=== PATIENT | female | born 1995 | race Caucasian/White ===

== ENCOUNTER 2022-09-04 16:26 | Outpatient (CLI) | payer SELFPAY ==
[2022-09-05 15:11] LABS: Strep B DNA Probe NEGATIVE (Negative)
[2022-09-05 15:53] LABS: Strep B Pen/Amox Allergy No
== END 2022-09-04 16:27 | disposition home or self-care (01) ==
LOC: NFLDREF 16:27
PROVIDERS: Visit Provider Advanced Practice Midwife
DX: Z34.93 Encounter for supervision of normal pregnancy, unspecified, third trimester (principal); Z3A.36 36 weeks gestation of pregnancy
CPT/HCPCS: 87081; 87653

== ENCOUNTER 2022-09-06 10:14 | Inpatient (IN) | payer OTHER, SELFPAY ==
[2022-09-06] VITALS (32 sets, daily range): BP systolic 93–139; BP diastolic 53–85; PULSE 82–114; RESP 16–18; TEMP 36.4–36.9; O2SAT 94–99; BMI 29.9
[2022-09-06 10:13] LABS: Amnisure Rom* POSITIVE
--- NOTE | 2022-09-06 11:07 | PM.OBHPLI ---
OB - H&P: HPI Labor/Induction History of Present Illness Date Seen: 09/06/22 Chief Complaint: The patient is a 27 year old 5 para 1031 at 36 3/7 weeks gestation by LMP, who presents with PROM. Chief complaint: Maternity : 5 Para: 1 Narrative: Deb Harrison is a 27 year old at 36 3/7 weeks gestation being admitted to Labor and Delivery for PROM of clear fluid that occurred about 5 am this morning. She denies any cramping, contractions, or vaginal bleeding. She is supported by her , Jesús. She plans an epidural for pain management. OB PROBLEM LIST 1. Transfer of care at 28 weeks 1 day from [place] 2. Previous with Down syndrome, elected termination.? Patient reports negative cell free DNA.? Boy!? Records pending 3. MALGORZATA was changed at transfer of care visit with known LMP.? By LMP, MALGORZATA 10/01/2022.? First ultrasound was done at approximately 16 weeks with an MALGORZATA 09/24/2022 4. History of depression, never treated.? Currently doing well. 5. Estimated weight 97th percentile on anatomy ultrasound, this was with working MALGORZATA of 09/24/2022. 6. History of vacuum assisted vaginal delivery secondary to maternal exhaustion History of Present Dating criteria: based on LMP care: good care Ultrasounds: normal 1st trimester US (04/11/2022:? Single intrauterine gestation with heart rate of 154.? MALGORZATA 09/24/2022 ) and normal mid trimester US (05/12/2022:? Posterior placenta, no previa.? Normal amniotic fluid.? Estimated weight 97th percentile.? Normal anatomy. MALGORZATA 10/01/22) Labs Blood type: B (+) positive Rubella: immune RPR/VDLR: nonreactive GBS status: negative HBsAG: negative Narrative: labs 03/07/2022: B positive, negative antibody screen, hemoglobin 13.2, platelets 208, rubella immune, RPR negative, hepatitis-B surface antigen nonreactive, HIV nonreactive, gonorrhea and Chlamydia negative, negative urine culture.? Hep C nonreactive.? Urine drug screen negative Twenty-eight week labs 06/20/2022: Hemoglobin 12.1, 1 hour GTT 82, RPR nonreactive Review of Systems Status of ROS: Reports: 10 or more systems reviewed and unremarkable except as noted in History and below Meds Home Medications and Allergies Home Medications Medication Instructions Recorded Confirmed Type acetaminophen 325 mg tablet 325 mg PO ONCE PRN 07/10/22 09/06/22 History (Tylenol) famotidine 20 mg tablet 20 mg PO QHS 07/10/22 09/06/22 History prenat.vits,michelle,mmz-[id number]-anbpz 1 tab PO QDAY 07/10/22 09/06/22 History Allergies Allergy/AdvReac Type Severity Reaction Status Date / Time No Known Drug Allergies Allergy Verified 09/04/22 14:55 OB - H&P: Exam Physical Exam: Vital signs: Temp Pulse Resp BP 98.4 F 88 18 128/85 09/06/22 10:45 09/06/22 10:29 09/06/22 10:45 09/06/22 10:29 Narrative: Vitals Reviewed Constitutional:? Alert and oriented x3 HEENT:? Normocephalic, atraumatic Neck:? Supple Lungs:? Clear to auscultation bilaterally Heart:? Regular rate and rhythm, no murmur, rub or gallop Abdomen:? Soft, nontender, and gravid. Vertex by Brad's Extremities:? No edema or erythema Cervix: deferred with ROM NST: 145 bpm/moderate variability/15x15 accelerations/no decelerations/occasional contractions OB - Problem Based A/P Additional Plan (1) premature rupture of membranes: Status: Acute (2) 36 weeks gestation of : Status: Acute (3) Hx of delivery by vacuum extraction, currently : Status: Acute Plan ASSESSMENT:? 27 at 36 3/7 weeks gestation? complicated by:?hx of fetus with down syndrome, elective termination; hx of depression, EFW 97%ile, hx of vacuum Labor type: Spontaneous, early labor? Category 1 FHR pattern.?? Labor complicated by: PPROM, 36 weeks gestation GBS negative? ? PLAN:? 1. Routine intrapartum cares as ordered. Discussed options of expectant management for max of 12 hours vs augmentation with pitocin. she desires expectant at this time but does no desire to wait 12 hours. Time of ROM 0500 am. Will revisit augmentation later around lunch time. 2. Monitoring per policy, continuous due to . Reviewed dating of of LMP vs 2nd trimester US. Based on current situation and vs not, we elect to keep LMP dating. Will plan for peds at delivery due to status. 3. Planning epidural, candidate for analgesia of choice when desired. 4. Patient encouraged to reposition and ambulate to promote physiologic labor and .? 5. Anticipate ? Delivery/Labor/Induction Plan Plan: expectant management
[2022-09-06 13:12] LABS: Basophils Percent Auto 0.4 % (0.0-3.0); Eosinophils Percent Auto 0.8 % (0.0-7.0); Hematocrit 37.6 % (33.0-51.0); Hemoglobin* 12.6 gm/dL (12.0-16.0); Immature Granulocytes Pct Auto 0.9 %; Lymphocytes Percent Auto 15.5 % (20-44); Mean Corpuscular HGB Conc 34 gm/dL (32-36); Mean Corpuscular Hemoglobin 30 pg (26-34); Mean Corpuscular Volume 91 fL (80-100); Monocytes Percent Auto 5.9 % (0.0-11.0); Neutrophils Percent Auto 76.5 % (42.0-72.0); Platelet Count* 179 K/uL (140-440); RDW Coefficient of Variation % 13.5 % (11.5-15.5); Red Blood Count 4.14 m/uL (4.00-5.20); White Blood Count* 13.31 K/uL (4.50-11.00)
[2022-09-06] MEDS: LACTATED RINGERS 1000 ML 1,000 ML 124 ML IV (13:13)
[2022-09-06] MEDS: OXYTOCIN 30 unit/500 ML in NS 30 UNIT/500 ML BAG IVPB (13:13)
[2022-09-06 13:27] LABS: Slide Review Reflex No
--- NOTE | 2022-09-06 17:35 | P.OBPN_ITS ---
Subjective Date Seen: 09/06/22 Narrative: Deb is a at 36 3/7 weeks gestation that presented for PPROM. She initially was not feeling anything. She elected expectant management. Baby was thought to be cephalic by Brad. Pitocin was started with request to defer cervical exam. This evening patient was starting to feel contractions and requested SVE. 2/50/-4 however no parts were palpated in the pelvis. Bedside ultrasound was performed where fetus was identified as breech. Objective Exam: Objective: Constitutional: Alert and oriented x3, [mild/moderate/severe] distress, coping well Vital signs stable, see nurse documentation Abdomen: gravid, contractions palpate [mild/moderate/strong] with contractions and soft between Cervix: 2 cm/50%/-4 station/BREECH NST: 145 bpm/moderate variability/accelerations present/decelerations present/contractions every 2-4 minutes, mild to moderate intensity Vital Signs: Last Vital Signs Temp 97.9 F 09/06/22 17:08 Pulse 109 H 09/06/22 17:01 Resp 18 09/06/22 17:08 BP 123/83 09/06/22 17:01 Pulse Ox 98 09/06/22 17:06 Contractions Monitor mode: External Contraction pattern: Regular Contraction intensity: Moderate Assessment Assessment: early labor Station: 0 Amniotic Membrane Status: SROM (Clear) Status: Category l Heart Rate Baseline: 145 Penitentiary Variability: Moderate (6-25) Monitor Accelerations: Present Monitor Decelerations: None Plan Plan: ASSESSMENT:? 27 at 36 3/7 weeks gestation? complicated by:?hx of fetus with down syndrome, elective termination; hx of depression, EFW 97%ile, hx of vacuum Labor type: Spontaneous, early labor? Category 1 FHR pattern.?? Labor complicated by: PPROM, 36 weeks gestation, BREECH GBS negative? ? PLAN:? 1. Pitocin stopped. MD notified to assess and likely proceed with c/s. Patient questions answered. 2. MD arrived to bedside and with low fluid recommends proceeding with section. Care transferred to Dr. Yang for procedure. Patient prepped for surgery.
--- NOTE | 2022-09-06 18:03 | P.OBCN_ITS ---
OB - CN: HPI Date of Consult Date Seen: 09/06/22 Consult date: 09/06/22 Requesting Physician: Maya Rios CNM Primary Care Provider: Not a Local Provider Consult Narrative Reason for consult: malpresentation Narrative: The patient is a 27 year old G5 P 1031 at 36 3/7 weeks gestation by LMP consistent with 2nd trimester ultrasound, MALGORZATA 10/01/2022, who presented after PPROM at around 5 a.m.. 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 She is mathew, and status has been reassuring, so she has been managed expectantly. However, Maya Rios CNM recently did a vaginal exam and noted presenting part to be quite high. Subsequently, she did a bedside ultrasound, revealing mild presentation. She then consulted me. OB PROBLEM LIST 1. Transfer of care at 28 weeks 1 day from [place] 2. Previous with Down syndrome, elected termination.? Patient reports negative cell free DNA.? Boy!? Records pending 3. MALGORZATA was changed at transfer of care visit with known LMP.? By LMP, MALGORZATA 10/01/2022.? First ultrasound was done at approximately 16 weeks with an MALGORZATA 09/24/2022 4. History of depression, never treated.? Currently doing well. 5. Estimated weight 97th percentile on anatomy ultrasound, this was with working MALGORZATA of 09/24/2022. 6. History of vacuum assisted vaginal delivery secondary to maternal exhaustion gestation Her history is otherwise as documented by Maya Rios CNM. History History 5 Elective abortions 2 Para 1 Spontaneous abortions 1 Hx # Term Pregnancies 1 Ectopic pregnancies Hx # Pregnancies Multiple births Number of Living Children 1 Past Pregnancies Del. Date GA/Weeks Outcome Route wt Inf Gender Labor Lgth Anesthesia Location Provider Compli Unknown elective Unknown elective Unknown spontaneous 07/07/21 41 live - full term 7 lb 14 oz Female 4hrs ep idural [facility] Delivery Date: 07/07/21 Last Updated by: Aletha Shea ~ [employer], [employer] vacuum assisted Labs Blood type: B (+) positive Rubella: immune RPR/VDLR: nonreactive GBS status: negative HBsAG: negative OB Labs: Lab Assessment Start: 09/06/22 10:26 Freq: Status: Active Protocol: PC.OBGBS Activity Type Activity Date Activity User E-sign Co-sign Detail Recorded Client Recorded Date Recorded By Document 09/06/22 10:26 [facility] [id number] 09/06/22 10:26 BEATA REYESDAVIDPETER 09/06/22 10:26 Lab Assessment GBS Negative [facility] Medical History History of depression ?Z86.59 - Personal history of other mental and behavioral disorders (ICD-10) Down syndrome in child of prior , currently ?O09.299 - Supervision of with other poor reproductive or obstetric history, unspecified trimester (ICD-10) Status post vacuum-assisted vaginal delivery ?Z87.59 - Personal history of other complications of , childbirth and the puerperium (ICD-10) Social History What is your current living situation: I presently have a place to live Problems where you live: no known problems In the past 12 months, utilities in danger of being shut off: no In the past 12 mos, have been you worried that your food would run out before y ou had money to buy more?: never true In the past 12 mos, the food you bought just didn't last and you didn't have money to buy more?: never true Smoking Status: Never smoker How often does anyone, including family, friends and others, physically hurt you : How often does anyone, including family, friends and others, insult or talk down to you: How often does anyone, including family, friends and others, threaten you with harm: How often does anyone, including family, friends and others, scream or curse at you: Little interest or pleasure in doing things: not at all Feeling down, depressed, or hopeless: not at all Meds Home Medications and Allergies Home Medications Medication Instructions Recorded Confirmed Type acetaminophen 325 mg tablet 325 mg PO ONCE PRN 07/10/22 09/06/22 History (Tylenol) famotidine 20 mg tablet 20 mg PO QHS 07/10/22 09/06/22 History prenat.vits,michelle,ori-nnut-mixal 1 tab PO QDAY 04/20/23 06/17/23 History Allergies Allergy/AdvReac Type Severity Reaction Status Date / Time No Known Drug Allergies Allergy Verified 09/04/22 14:55 OB - H&P: Exam Physical Exam: Vital signs: Temp Pulse Resp BP Pulse Ox 97.9 F 109 H 18 123/83 98 09/06/22 17:08 09/06/22 17:01 09/06/22 17:08 09/06/22 17:01 09/06/22 17:06 Narrative: Physical exam: General: No acute distress Psych: Alert and oriented x3, full affect, using nitrous for contractions HEENT: Normocephalic, atraumatic Abdomen: Soft, nontender, gravid. head palpable in left upper quadrant of the uterus. Lower extremities: No edema or erythema Bedside ultrasound performed, revealing breech presentation with back to maternal right and oligohydramnios, consistent with previous rupture of membranes. OB - Results Labs Labs: Short CBC 09/06/22 Range/Units 13:00 WBC 13.31 H (4.50-11.00) K/uL Hgb 12.6 (12.0-16.0) gm/dL Hct 37.6 (33.0-51.0) % Plt Count 179 (140-440) K/uL OB - CN: A/P Assessment and Plan (1) premature rupture of membranes: Status: Acute (2) 36 weeks gestation of : Status: Acute (3) Breech presentation: Status: Acute Assessment and Plan: Plan is for primary low-transverse section. Discussed risks of procedure, including bleeding/hemorrhage, infection, damage to internal organs, thromboembolism, intra-abdominal scarring, and effect on future pregnancies. Consent form reviewed with and signed by patient. We will use azithromycin and cefazolin for preoperative prophylaxis. We discussed postoperative restrictions and precautions.
[2022-09-06] MEDS: miSOPROStoL 800 MCG/4 TABLET PR (19:08)
--- NOTE | 2022-09-06 19:15 | P.OBPRC_ITS ---
Procedure Date of procedure: 09/06/22 Procedure Done: Global Will [facility] bill your pro fee for this procedure?: Yes Procedure Description: Procedures Operation Date: 09/06/22 18:45 Actual Procedure Side Surgeon p Section Stefani Yang MD PREOPERATIVE DIAGNOSIS: PPROM at 36 3/7 weeks' gestation Breech presentation POSTOPERATIVE DIAGNOSIS: PPROM at 36 3/7 weeks' gestation Breech presentation PROCEDURE: Primary low-transverse section SURGEON: Stefani Yang MD ANESTHESIA: Spinal IV FLUIDS: 2000 cc crystalloid QBL: 1105 mL FINDINGS: 1. Male infant, breech presentation with sacrum transverse to maternal right, Apgars 8 and 9, weight 3510 g 2. Normal appearance to uterus, bilateral tubes and ovaries. COMPLICATIONS: Intraoperative hemorrhage of 1105 mL, attributable to abundant bleeding from uterine vessels at time of hysterotomy and to uterine atony. Managed with Pitocin, uterine massage, IM Methergine and rectal misoprostol. PROCEDURE IN DETAIL: Patient was taken to the operating room with IV running. She received cefazolin and azithromycin in preoperative prophylaxis. Spinal anesthesia was administered. Parnell catheter was inserted. She was prepped and draped in the usual sterile fashion. Anesthesia was tested and found to be adequate. A low-transverse skin incision was made with a scalpel and carried through to the underlying layer of fascia with the scalpel. The subcutaneous fat was dissected off the underlying fascia bluntly. The fascia was nicked in the midline with a scalpel, and this incision was extended laterally with scissors. The rectus muscles were in the midline. Peritoneum was identified and entered bluntly. Ren O retractor was inserted and tightened down, providing excellent visualization of the lower uterine segment. The bladder reflection was found to be well below the planned site for hysterotomy. Low-transverse uterine incision was made with a scalpel. Incision was widened bluntly. Abundant bleeding was encountered. The infant's hips were grasped through the hysterotomy and the sacrum was rotated anteriorly. Infant's breech was then delivered, followed by both legs. Body was rotated to facilitate delivery the arms. Head was delivered while maintaining flexed position. Cord was clamped and cut after 30 seconds. was handed off to attending nurses. The placenta was delivered with gentle traction on the cord. The uterus was cleaned of all clots and debris with the dry lap pad. The hysterotomy was reapproximated with 0 Vicryl in a running, locked fashion. An additional fi [id number]-[id number] suture was used to obtain hemostasis, as was Bovie on a raw area of the serosa. The uterus was exteriorized and massaged. The adnexa were examined and noted to be normal in appearance. The cul-de-sac and gutters were cleansed with dampened laparotomy sponge, removing any further clots and debris. The uterus was returned to the abdomen. The Ren O retractor was removed. The hysterotomy was reexamined and found to be hemostatic. The peritoneum was reapproximated with 2 0 Vicryl in a running fashion. The rectus muscles were examined and found to be hemostatic. The fascia was reapproximated with 0 Vicryl in a running fashion. Subcutaneous fat was irrigated and found to be hemostatic. The subcutaneous fat was reapproximated with 2 0 plain gut suture in an interrupted fashion. The skin was closed with a subcuticular stitch of 4-0 Monocryl. Surgical glue was applied above this. Patient tolerated procedure well was taken to recovery area in stable condition. [place] Infant total score - 1 minute: 8 total score - 5 minute: 9
[2022-09-06] MEDS: KETOROLAC 30 MG/ML inj IVP (19:30)
--- NOTE | 2022-09-06 19:42 | W.PM.NB ---
Nerve Block Nerve Block Time Seen by Provider: 19:15 Date Seen: 09/06/22 Type of block requested by surgeon for post-operative analgesia: TAP Side: bilateral Time out performed: Yes Verification of patient name: Yes Verification of date of : Yes Site marking: not applicable Name of person performing procedure: Saurav Cabrales CRNA Continuous monitoring Was continuous monitoring of O2 sat, B/P, cardiac monitor technician, recorded every 15 minutes?: Yes Procedure Checklist: sterile prep, needles and gloves Ultrasound guided. Images saved: Yes Medications given in 5ml increments after negative aspiration: Marcaine %: 0.25 mL: 30 Needle gauge: 20 and Exparel mL: 10 Needle gauge: 20 Patient tolerated procedure well: Yes Block Charges Block Charge (with Pro Fee): TAP Bilateral Use of Ultrasound Machine for Block: Yes- US Guidance/pain block
--- NOTE | 2022-09-06 19:44 | W.ANESCHARGE ---
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
[2022-09-06] MEDS: OXYTOCIN 30 unit/500 ML in NS 30 UNIT/500 ML BAG 300 UNIT IVPB (20:09)
[2022-09-06] MEDS: diphenhydrAMINE 50 MG/ML inj 12.5 MG IVP ×2 (21:26→21:48)
[2022-09-07] VITALS (22 sets, daily range): BP systolic 103–111; BP diastolic 55–73; PULSE 76–97; RESP 16–18; TEMP 36.2–36.8; O2SAT 94–99
[2022-09-07 01:02] LABS: Basophils Percent Auto 0.1 % (0.0-3.0); Hematocrit 35.2 % (33.0-51.0); Hemoglobin* 11.8 gm/dL (12.0-16.0); Immature Granulocytes Pct Auto 1.7 %; Lymphocytes Percent Auto 5.8 % (20-44); Mean Corpuscular HGB Conc 34 gm/dL (32-36); Mean Corpuscular Hemoglobin 31 pg (26-34); Mean Corpuscular Volume 91 fL (80-100); Monocytes Percent Auto 4.3 % (0.0-11.0); Neutrophils Percent Auto 88.1 % (42.0-72.0); Platelet Count* 179 K/uL (140-440); RDW Coefficient of Variation % 13.4 % (11.5-15.5); Red Blood Count 3.87 m/uL (4.00-5.20); White Blood Count* 23.57 K/uL (4.50-11.00)
[2022-09-07 01:03] LABS: Slide Review Reflex No
[2022-09-07] MEDS: KETOROLAC 30 MG/ML inj IVP ×4 (01:08→19:55)
[2022-09-07 06:57] LABS: Hemoglobin* 10.7 gm/dL (12.0-16.0)
[2022-09-07] MEDS: DOCUSATE SODIUM 100 MG CAPSULE PO (08:24)
--- NOTE | 2022-09-07 08:58 | PM.OBPNCS1 ---
OB - PN: A/P Assessment and Plan (1) Status post : Status: Acute (2) Lactating mother: Status: Acute (3) care and examination immediately after delivery: Status: Acute (4) Anemia due to acute blood loss: Status: Acute Plan day: 1 Plan: routine postop care Comments: Routine care Encouraged ambulation with removal of urinary catheter this am. May see if desired Anticipate discharge tomorrow 09/08 or Saturday 09/09 OB - PN: Subj Subjective Date Seen: 09/07/22 Interval history: Deb is a 27 yo who was admitted to L&D for PROM. Baby was found to be breech during labor. She had an uncomplicated c/s. Patient comments: no complaints, pain well controlled, incisional pain, tolerating diet and flatus present [place] status: feeding status: exclusively Narrative: Deb is a 27 y.o. who was admitted to L & D for PROM. Fetus was in breech position. ?She had an uncomplicated .?The patient feels well. ?The pain is well controlled with current medications. ?She has no new complaints. ?She is breast feeding and reports things are going well.? the patient has done well.? Vitals have been stable.? She has remained afebrile.? Has a good appetite, is tolerating a general diet. ?She is voiding without difficulty.? She is passing gas and has had a bowel movement.? She is ambulating and denies any dizziness.? Has Small amount of rubra lochia. OB - PN: Obj Exam Physical Exam: Vital signs: Temp Pulse Resp BP Pulse Ox O2 Del Method 97.6 F 78 18 103/70 99 Room Air 09/07/22 07:54 09/07/22 07:54 09/07/22 07:54 09/07/22 07:54 09/07/22 07:54 09/07/22 07:54 Narrative: GENERAL APPEARANCE:? normal affect, alert, no distress MOOD:? appropriate CHEST:? clear to auscultation HEART:? regular rate and rhythm ABDOMEN:? soft, non-tender the uterine fundus is At Umbilicus, Midline and is appropriate for the stage of recovery. PERINEUM:? mild edema of the perineum, there is a Perineal Laceration,?that is healing well. EXTREMITIES:? normal and no edema INCISION: Dressing in place, clean, dry, and intact. Urinary Catheter Management: Urethral: Cath placed during this visit: no Urethral indwelling: Yes Reason for continuing: surgical procedure (removal planned this morning) OB - PN: Obj Data Labs Labs: Laboratory Results - last 24 hr 09/06/22 09/06/22 09/07/22 10:03 13:00 00:55 WBC 13.31 H 23.57 H RBC 4.14 3.87 L Hgb 12.6 11.8 L Hct 37.6 35.2 MCV 91 91 MCH 30 31 MCHC 34 34 RDW Coeff of Romel 13.5 13.4 Plt Count 179 179 Neut % (Auto) 76.5 H 88.1 H Lymph % (Auto) 15.5 L 5.8 L [place] % (Auto) 5.9 4.3 Eos % (Auto) 0.8 0.0 Baso % (Auto) 0.4 0.1 Neut # (Auto) 10.20 H 20.80 H Lymph # (Auto) 2.10 1.40 [place] # (Auto) 0.80 1.00 H Eos # (Auto) 0.10 0.00 Baso # (Auto) 0.10 0.00 Membrane Rupture POSITIVE Blood Type B Positive Antibody Screen NEGATIVE 09/07/22 06:43 WBC RBC Hgb 10.7 L Hct MCV MCH MCHC RDW Coeff of Romel Plt Count Neut % (Auto) Lymph % (Auto) [place] % (Auto) Eos % (Auto) Baso % (Auto) Neut # (Auto) Lymph # (Auto) [place] # (Auto) Eos # (Auto) Baso # (Auto) Membrane Rupture Blood Type Antibody Screen
[2022-09-07] MEDS: OXYCODONE 5 MG TABLET PO ×3 (09:05→19:12)
[2022-09-07] MEDS: SODIUM CHLORIDE 0.9 % (FLUSH) 10 ML SYRINGE IVF (14:04)
[2022-09-07] MEDS: ACETAMINOPHEN 500 MG TABLET 1000 MG PO (17:44)
[2022-09-08] MEDS: ACETAMINOPHEN 500 MG TABLET 1000 MG PO ×4 (01:07→19:49)
[2022-09-08] MEDS: KETOROLAC 30 MG/ML inj IVP (03:41)
[2022-09-08 04:39] VITALS: BP 114/78; PULSE 73; RESP 18; O2SAT 100
--- NOTE | 2022-09-08 08:15 | PM.OBPNCS1 ---
OB - PN: A/P Assessment and Plan (1) care and examination immediately after delivery: Status: Acute (2) Status post : Status: Acute (3) Lactating mother: Status: Acute (4) Anemia due to acute blood loss: Status: Acute Plan day: 2 Plan: routine postop care Comments: Routine care. Continue to work with nursing and on . Recommended staying for the additional support because baby is . Anticipate discharge tomorrow 09/08. OB - PN: Subj Subjective Time Seen by Provider: 08:15 Date Seen: 09/08/22 Interval history: Deb is a 27 yo who was admitted to L&D for PPROM. Baby was found to be breech during labor. She had an c/s complicated by hemorrhage of 1105 mL. Patient comments: no complaints, pain well controlled, incisional pain, tolerating diet and flatus present infant status: (with some difficulty, plans to see today.) and doing well feeding status: exclusively Narrative: Deb is a 27 y.o. who was admitted to L & D for PPROM. She had an complicated by hemorrhage of 1105.?Hemoglobin is 10.7. She was started on an iron supplement by Dr. Yang. The patient feels well. ?The pain is well controlled with current medications. ?She has no new complaints. ?She is breast feeding. She is having difficulty keeping awake for the feedings and latching. She desires to see today. the patient has done well.? Vitals have been stable.? She has remained afebrile.? Has a good appetite, is tolerating a general diet. ?She is voiding without difficulty.? She is passing gas and has not had a bowel movement.? She is ambulating and denies any dizziness.? Has scant amount of rubra lochia. ? OB - PN: Obj Exam Physical Exam: Vital signs: Temp Pulse Resp BP Pulse Ox O2 Del Method 98.2 F 97 16 111/62 97 Room Air 09/08/22 08:45 09/08/22 08:45 09/08/22 08:45 09/08/22 08:45 09/08/22 08:45 09/08/22 08:45 Narrative: GENERAL APPEARANCE:? normal affect, alert, no distress MOOD:? appropriate CHEST:? clear to auscultation HEART:? regular rate and rhythm ABDOMEN:? soft, non-tender the uterine fundus is At Umbilicus, Midline and is appropriate for the stage of recovery. EXTREMITIES:? normal and no edema INCISION: Healing well, no surrounding erythema, abnormal induration or discharge. Glue intact. Urinary Catheter Management: Urethral: Cath placed during this visit: yes, but has since been removed by the nurse Urethral indwelling: Yes Reason for continuing: surgical procedure Removal date: 09/07/22 Removal time: 09:45 OB - PN: Obj Data Labs Labs: WBC 23.57 K/uL (4.50-11.00) H 09/07/22 00:55 RBC 3.87 m/uL (4.00-5.20) L 09/07/22 00:55 Hgb 10.7 gm/dL (12.0-16.0) L 09/07/22 06:43 Hct 35.2 % (33.0-51.0) 09/07/22 00:55 MCV 91 fL (80-100) 09/07/22 00:55 MCH 31 pg (26-34) 09/07/22 00:55 MCHC 34 gm/dL (32-36) 09/07/22 00:55 RDW Coeff of Romel 13.4 % (11.5-15.5) 09/07/22 00:55 Plt Count 179 K/uL (140-440) 09/07/22 00:55 Neut % (Auto) 88.1 % (42.0-72.0) H 09/07/22 00:55 Lymph % (Auto) 5.8 % (20-44) L 09/07/22 00:55 [place] % (Auto) 4.3 % (0.0-11.0) 09/07/22 00:55 Eos % (Auto) 0.0 % (0.0-7.0) 09/07/22 00:55 Baso % (Auto) 0.1 % (0.0-3.0) 09/07/22 00:55 Neut # (Auto) 20.80 K/uL (1.7-7.0) H 09/07/22 00:55 Lymph # (Auto) 1.40 K/uL (0.90-2.90) 09/07/22 00:55 [place] # (Auto) 1.00 K/UL (0.00-0.90) H 09/07/22 00:55 Eos # (Auto) 0.00 K/uL (0.00-0.50) 09/07/22 00:55 Baso # (Auto) 0.00 K/uL (0.00-0.30) 09/07/22 00:55 Membrane Rupture POSITIVE 09/06/22 10:03 Blood Type B Positive 09/06/22 13:00 Antibody Screen NEGATIVE 09/06/22 13:00
[2022-09-08 08:45] VITALS: BP 111/62; PULSE 97; RESP 16; TEMP 36.8; O2SAT 97
[2022-09-08] MEDS: DOCUSATE SODIUM 100 MG CAPSULE PO (08:49)
[2022-09-08] MEDS: IBUPROFEN 600 MG TABLET PO ×3 (10:49→23:04)
[2022-09-08 17:10] VITALS: BP 121/80; PULSE 78; RESP 16; TEMP 36.6; O2SAT 100
[2022-09-08 19:44] VITALS: BP 112/75; PULSE 72; RESP 16; TEMP 36.5; O2SAT 99
[2022-09-08] MEDS: FERROUS SULFATE 325 MG TABLET 650 MG PO (19:49)
[2022-09-08] MEDS: OXYCODONE 5 MG TABLET PO (21:18)
[2022-09-09 03:36] VITALS: BP 110/63; RESP 16; TEMP 36.4; O2SAT 98
[2022-09-09] MEDS: ACETAMINOPHEN 500 MG TABLET 1000 MG PO (03:38)
[2022-09-09] MEDS: IBUPROFEN 600 MG TABLET PO (06:49)
--- NOTE | 2022-09-09 07:35 | P.DS_ITS ---
DS: Providers Provider Date Seen: 09/09/22 Date of admission: 09/06/22 10:14 Primary care physician: Not a Local Provider Admitting Clinician: Maya Rios CNM Attending Physician on discharge: Maya Rios CNM Date of Discharge: 09/09/22 DS: Diagnosis Discharge Diagnosis (1) Anemia due to acute blood loss: Status: Acute (2) care and examination immediately after delivery: Status: Acute (3) Lactating mother: Status: Acute (4) Status post : Status: Acute Exam Narrative: Exam Narrative: GENERAL APPEARANCE:? normal affect, alert, no distress? MOOD:? appropriate? CHEST:? clear to auscultation and percussion? HEART:? regular rate and rhythm? ABDOMEN:? soft, non-tender the uterine fundus is 2 cm Below Umbilicus, Midline and is appropriate for the stage of recovery. Incision well approximated without edema, redness, warmth, or drainage. Glue closure intact.? EXTREMITIES:? normal and no edema? Patient has no complaints? No active bleeding?? Doing well? She is requesting discharge home.? Const: Vital Signs, click to edit/add: Vital Signs - 24 hr 09/08/22 08:45 09/08/22 17:10 09/08/22 19:44 Temperature 98.2 F 97.8 F 97.7 F Pulse Rate [Bilate ral Pulse Oximeter ] 97 78 72 Respiratory Rate 16 16 16 Blood Pressure [Le ft Arm] 111/62 121/80 112/75 Pulse Oximetry 97 100 99 Oxygen Delivery Me thod Room Air Room Air Room Air 09/09/22 03:36 Temperature 97.5 F L Pulse Rate [Bilate ral Pulse Oximeter ] Respiratory Rate 16 Blood Pressure [Le ft Arm] 110/63 Pulse Oximetry 98 Oxygen Delivery Me thod Room Air OB - DS: Summary Hospital Course Hospital Course: The patient is a 27 year old G 5 P 2 at 36.6 weeks gestation that was admitted to the Center on 09/06/22 for SROM. Baby was discovered to be breech presentation after she presented. She had an uncomplicated delivery. She delivered a viable male . She is breast feeding and reports things are well.? the patient has done well.? Her pain is well controlled with current medications.? She has no new complaints.? Vitals have been stable. She has remained afebrile. She is voiding without difficulty. She is passing gas and has not had a bowel movement. She is ambulating and denies any dizziness. She is planning condoms until her partners vasectomy for control.?? Peripartum Data Procedures: Procedures Operation Date: 09/06/22 18:45 Actual Procedure Side Surgeon p Section Stefani Yang MD complications: none [place] Gender: Male Discharge Plan: Home Status at Discharge Functional status at discharge: independent ambulation Overall status at discharge: patient is progressing back to baseline Time Spent with Patient Time attestation: Total time spent providing and/or coordinating discharge services: Discharge Plan Discharge Disposition: Home, Self-Care Date of Admission: 09/06/22 10:14 Attending Provider on Discharge: Liv Veloz Primary Care Provider: Provider,Not a Local Condition: Stable Anticipated Discharge Date/Time: 09/09/22 10:00 Discharge Medications: New docusate sodium 100 mg Capsule 100 mg PO DAILY Qty: 90 0RF Rx Instructions: Take 1-2 tablets daily as needed for constipation. ferrous sulfate 325 mg (65 mg iron) Tablet 650 mg PO Q48H Qty: 60 0RF ibuprofen 600 mg Tablet 600 mg PO Q6H PRN (Reason: Pain) Qty: 90 0RF oxycodone 5 mg Tablet 5 - 10 mg PO Q4H PRN (Reason: Pain) Qty: 14 0RF Continued prenat.vits,michelle,[id number] Tablet 1 tab PO QDAY acetaminophen [Tylenol] 325 mg tablet 325 mg PO ONCE PRN famotidine 20 mg tablet 20 mg PO QHS Discharge Orders: Discharge Order (Routine); Ordered 09/09/22 Ordered By: Liv Veloz Patient Education: OB /Bottle Feeding, OB /Breast Feeding Additional Instructions: Discharge instructions were reviewed with the patient including signs and sy mptoms of infection and home going medications? ?? Activity restrictions:? Lifting Restrictions: 20 pounds for 6 weeks? No high-impact or core exercises for 6 weeks.?? No not submerge incision under water X 2 weeks?? Nothing vaginally for 6 weeks: no tampons or intercourse? Do not drive while taking narcotic pain medication(s)? Off Work or School for 8 weeks? ?? Symptoms to report to doctor:? -Bleeding that saturates more than one pad per hour? -Passing clots larger than the size of a golf ball? -Pain not relieved by prescribed medication? -Fever above 100.4 degrees Fahrenheit? -A foul vaginal odor? -Difficulty in emotions, mood and functions? -Thoughts of hurting yourself and/or ? -Painful, reddened area in your breast? -Any drainage, redness or tenderness in your IV/epidural site? -Severe headache that doesn't improve after taking medications? -Changes in vision, including temporary loss of vision, blurred vision, and/or light sensitivity? -Upper abdominal pain (usually under ribs on the right side)? -Decrease in urination or painful, frequent urinating? -Chest pain? -Shortness of breath? -Tenderness or pain with redness and/swelling in the calf(s) of your leg? Follow up visits:?? 1. 2-week visit: discuss infant feeding/care concerns, review control options and screen for anxiety/depression.? 2. 6-week visit for an annual exam.? ?? consultation services are available to all mothers and babies for the first year after delivery.? To make an appointment, please call [phone].? Follow Up Appointments: Provider,Not a Local [Primary Care Provider] - Forms: [employer] Info Instructions Discharge Comments: Pt left unit accompanied by spouse. Pt left with all of her belongings. No acute signs/symptoms noted. Pt denies any questions/concerns at this time.
[2022-09-09 08:00] VITALS: BP 106/69; PULSE 70; RESP 16; TEMP 36.4; O2SAT 100
[2022-09-09] MEDS: DOCUSATE SODIUM 100 MG CAPSULE PO (08:14)
[2022-09-09] MEDS: OXYCODONE 5 MG TABLET PO (10:55)
== END 2022-09-09 12:15 | disposition home or self-care (01) | DRG 787 ==
LOC: OB OUT 10:15 → OB 10:15
PROVIDERS: Obstetrics & Gynecology; Admitting Provider Advanced Practice Midwife; Visit Provider Advanced Practice Midwife
PROC: 10D00Z1 Extraction of Products of Conception, Low, Open Approach (ICD-10-PCS; CPT 59514; principal; 2022-09-06 18:30)
DX: O42.013 Preterm premature rupture of membranes, onset of labor within 24 hours of rupture, third trimester (principal); D62 Acute posthemorrhagic anemia; O90.81 Anemia of the puerperium; O67.8 Other intrapartum hemorrhage; O32.1XX0 Maternal care for breech presentation, not applicable or unspecified; Z3A.36 36 weeks gestation of pregnancy; Z37.0 Single live birth; G89.18 Other acute postprocedural pain
CPT/HCPCS: 01961; 36415; 64488; 76815; 76942; 84112; 85018; 85025; 86850; 86900; 86901; 88307; 99140; A9270; C9290; J0456; J1100; J1200; J1885; J2210; J2274; J2370; J2405; J2590; J3490; J7120

== ENCOUNTER 2023-01-01 15:51 | Outpatient (CLI) | payer OTHER, SELFPAY | END 2023-01-01 15:52 | disposition home or self-care (01) | PROVIDERS: Visit Provider Nurse Practitioner Family | DX: R39.9 Unspecified symptoms and signs involving the genitourinary system (principal); N30.00 Acute cystitis without hematuria; N30.01 Acute cystitis with hematuria | CPT/HCPCS: 87086; 87186 ==

== ENCOUNTER 2024-01-29 15:39 | Outpatient (CLI) | payer OTHER, SELFPAY ==
[2024-02-01 16:30] LABS: HPV Source Cervix; HPV, High Risk by TMA Not Detected
== END 2024-01-29 15:40 | disposition home or self-care (01) ==
PROVIDERS: Visit Provider Advanced Practice Midwife
DX: Z01.419 Encounter for gynecological examination (general) (routine) without abnormal findings (principal); Z12.4 Encounter for screening for malignant neoplasm of cervix; Z13.1 Encounter for screening for diabetes mellitus; Z13.6 Encounter for screening for cardiovascular disorders; Z11.51 Encounter for screening for human papillomavirus (HPV)
CPT/HCPCS: 87624; 87625; 88141; 88142

== ENCOUNTER 2024-06-28 16:11 | Outpatient (CLI) | payer OTHER, SELFPAY ==
[2024-06-28 21:48] LABS: Chlamydia DNA Amplified* NOT DETECTED (No Detected); GC DNA Amplified* NOT DETECTED (No Detected)
== END 2024-06-28 16:12 | disposition home or self-care (01) ==
PROVIDERS: Visit Provider Midwife
DX: Z11.3 Encounter for screening for infections with a predominantly sexual mode of transmission (principal)
CPT/HCPCS: 87491; 87591

== ENCOUNTER 2024-07-21 12:46 | Outpatient (CLI) | payer OTHER, SELFPAY ==
[2024-07-21 14:15] LABS: Hepatitis B Surface Antigen* Negative (Negative)
[2024-07-21 14:25] LABS: HIV 1/2/P24 Combo Screen* Negative (Negative)
[2024-07-21 14:33] LABS: Hepatitis C Virus Antibody* Negative (Negative)
[2024-07-21 14:45] LABS: Hepatitis B Surface Antibody* Positive (Negative)
[2024-07-22 18:45] LABS: Rapid Plasma Reagin (RPR) Non Reactive (Non Reactive)
== END 2024-07-21 12:47 | disposition home or self-care (01) ==
LOC: LAB 12:51
PROVIDERS: Visit Provider Midwife
DX: Z11.3 Encounter for screening for infections with a predominantly sexual mode of transmission (principal); Z11.59 Encounter for screening for other viral diseases
CPT/HCPCS: 36415; 86592; 86703; 86706; 86803; 87340